=== PATIENT | female | born 1980 | race Caucasian/White ===

== ENCOUNTER → 2021-04-14 | Outpatient (CLI) | payer MEDICAID, OTHER ==
[2021-04-14 23:59] LABS: HCT 38.1 % (37.2-46.3); HGB 12.3 g/dL (12.0-15.0); MCH 29.6 pg (27.0-32.0); MCHC 32.3 g/dL (32.0-37.0); MCV 91.6 fL (80.0-97.0); Mean Platelet Volume 8.6 fL (9.5-12.2); Platelet Count 355 X 10*3/uL (140-440); RBC 4.16 X 10*6/uL (4.10-5.20); RDW 12.2 % (11.5-14.5); WBC 7.63 X 10*3/uL (4.50-10.00)
[2021-04-15 06:50] LABS: ACTH 8.52 pg/mL (0.00-45.99)
[2021-04-15 10:06] LABS: Thyroid Peroxidase Antibodies 33.7 U/mL (0.0-60.0)
[2021-04-15 10:13] LABS: % Iron Saturation 11.14 (12.00-45.00); African American GFR (CKD) 80.5 (60.0-200.0); Albumin 4.3 g/dL (3.80-4.90); Albumin/Globulin Ratio 1.54 (1.60-3.17); Anion Gap 10.9 mmol/L (4.00-12.00); Calcium 9.2 mg/dL (8.7-10.3); Carbon Dioxide 24.1 mmol/L (21.6-31.8); Globulin 2.8 g/dL (1.6-3.3); Non-African American GFR(CKD) 69.4 (60.0-200.0); Potassium 3.8 mmol/L (3.5-5.5); Total Bilirubin 0.3 mg/dL (0.3-1.2); Total Protein 7.1 g/dL (6.2-8.2)
[2021-04-15 10:22] LABS: Prolactin 9.9 ng/mL (2.8-29.2)
[2021-04-15 10:23] LABS: T4, Free (Free Thyroxine) 1.3 ng/dL (0.80-1.80)
== END | disposition home or self-care (01) ==
LOC: LABWHC1 15:29
PROVIDERS: ATTEND Internal Medicine Endocrinology, Diabetes & Metabolism
DX: R53.83 Other fatigue (principal)
CPT/HCPCS: 36415; 80053; 82024; 82533; 82607; 83540; 83550; 84146; 84439; 84443; 84481; 85027; 86376

== ENCOUNTER → 2021-06-06 | Outpatient (CLI) | payer OTHER ==
[2021-06-06 09:04] LABS: INR 0.9 (<1.2); Partial Thromboplastin Time 22.1 sec (22.0-30.0); Prothrombin Time 9.8 sec (9.0-12.0)
[2021-06-06 11:27] LABS: Basophils # (A) 0.03 X 10*3/uL (0.00-0.10); Basophils % (A) 0.4 %; Eosinophils # (A) 0.01 X 10*3/uL (0.04-0.35); Eosinophils % (A) 0.1 %; HGB 13.3 g/dL (12.0-15.0); Lymphocytes % (A) 12.7 %; MCH 30.1 pg (27.0-32.0); MCHC 33.3 g/dL (32.0-37.0); MCV 90.5 fL (80.0-97.0); Mean Platelet Volume 8.4 fL (9.5-12.2); Monocytes # (A) 0.25 X 10*3/uL (0.20-1.00); Monocytes % (A) 3.5 %; Neutrophils # (A) 5.88 X 10*3/uL (1.80-7.70); Platelet Count 376 X 10*3/uL (140-440); RBC 4.42 X 10*6/uL (4.10-5.20); RDW 12.1 % (11.5-14.5); WBC 7.09 X 10*3/uL (4.50-10.00)
== END | disposition home or self-care (01) ==
LOC: LABWHC1 07:42
PROVIDERS: ATTEND Internal Medicine Endocrinology, Diabetes & Metabolism
DX: R53.83 Other fatigue (principal); R23.8 Other skin changes
CPT/HCPCS: 36415; 82024; 82533; 85025; 85610; 85730

== ENCOUNTER → 2021-07-25 | Outpatient (CLI) | payer OTHER ==
[2021-07-25 22:29] LABS: % Iron Saturation 12.89 (12.00-45.00); African American GFR (CKD) 90.8 (60.0-200.0); Albumin 4.1 g/dL (3.8-4.9); Albumin/Globulin Ratio 1.56 (1.60-3.17); Anion Gap 13.8 mmol/L (4.00-12.00); BUN/Creat Ratio 14.14 Ratio (12.00-20.00); Blood Urea Nitrogen 12.8 mg/dL (9.0-27.0); Calcium 9.3 mg/dL (8.7-10.3); Carbon Dioxide 21.1 mmol/L (21.6-31.8); Globulin 2.7 g/dL (1.6-3.3); Non-African American GFR(CKD) 78.3 (60.0-200.0); Potassium 3.9 mmol/L (3.5-5.5); Prolactin 11.1 ng/mL (2.800-29.200); T4, Free (Free Thyroxine) 1.11 ng/dL (0.800-1.800); Total Bilirubin 0.2 mg/dL (0.30-1.20); Total Protein 6.8 g/dL (6.2-8.2)
== END | disposition home or self-care (01) ==
LOC: LABWHC1 14:01
PROVIDERS: ATTEND Internal Medicine Endocrinology, Diabetes & Metabolism
DX: R53.83 Other fatigue (principal); R23.8 Other skin changes
CPT/HCPCS: 36415; 80053; 82024; 82533; 82607; 83540; 83550; 84146; 84439; 84443; 84481

== ENCOUNTER → 2021-09-28 | Outpatient (CLI) | payer OTHER | END | disposition home or self-care (01) | LOC: LABWHC1 10:08 | PROVIDERS: ATTEND Emergency Medicine | DX: Z20.822 Contact with and (suspected) exposure to COVID-19 (principal) | CPT/HCPCS: 87635 ==